=== PATIENT | female | born 1935 | race Caucasian/White ===

== ENCOUNTER 2018-12-28 21:48 | Emergency (ER) | payer OTHER ==
--- NOTE | 2018-12-28 21:58 | PDOC ---
History of Present Illness <Keya Singh - Last Filed: 12/28/18 23:51> - General History Source: Patient Exam Limitations: No Limitations - History of Present Illness Initial Comments: 12/28/18 22:13 83 year old Malaysian speaking female with a significant past medical history of thyroid disease, migraines, hypercholestrolemia, HIV, cataracts surgery, early dementia, chronic dizziness, who presents with L eye subconjunctival bleeding and eye pain with lateral extraocular movements that occurred approximately 1 hour ago while sitting on the couch. The patient does not take any anticoagulants. Denies any headache, nausea, vomiting, loss of consciousness, neck pain, chest pain, shortness of breath, abdominal pain, she has no other complaints at bedside. Family reports she had some dizziness and seeing stars one day ago but patient denies any visual changes at bedside, including spots, blurriness or dimming of vision. <Venecia Jurado - Last Filed: 12/29/18 00:07> - General Chief Complaint: Eye Problem Stated Complaint: EYE PROBLEM Time Seen by Provider: 12/28/18 21:58 Past History <Keya Singh - Last Filed: 12/28/18 23:51> - Past Medical History HTN: Yes Hypercholesterolemia: Yes Thyroid Disease: Yes - Immunization History Immunization Up to Date: Yes - Suicide/Smoking/Psychosocial Hx Smoking History: Current every day smoker Have you smoked in the past 12 months: Yes Number of Cigarettes Smoked Daily: 5 Hx Alcohol Use: No Drug/Substance Use Hx: No Substance Use Type: None <Venecia Jurado - Last Filed: 12/29/18 00:07> - Past Medical History Allergies/Adverse Reactions: Allergies Allergy/AdvReac Type Severity Reaction Status Date / Time No Known Allergies Allergy Verified 03/02/16 09:29 Home Medications: Ambulatory Orders Diltiazem HCl [Cardizem Cd] 120 mg PO DAILY 11/19/13 Enalapril Maleate [Vasotec -] 20 mg PO DAILY 11/19/13 Levothyroxine [Synthroid -] 125 mcg PO DAILY 11/19/13 Simvastatin [Zocor] 20 mg PO HS 11/19/13 Amoxicillin - [Amoxicillin 500mg Capsule -] 500 mg PO DAILY #42 capsule Tramadol HCl [Ultram] 50 mg PO QID #40 tablet MDD 4 06/02/16 Review of Systems - Review of Systems Able to Perform ROS?: Yes Is the patient limited Mongolian proficient: No Constitutional: No: Chills, Diaphoresis, Fever HEENTM: Yes: See HPI (eye discomfort), Cataracts (history of cataracts). No: Blurred Vision, Tearing, Double Vision, Ocular Prothesis, Ear Discharge, Nose Pain, Nose Congestion, Tinnitus, Nose Bleeding, Hearing Loss, Throat Pain, Throat Swelling, Mouth Pain, Dental Problems, Difficulty Swallowing, Mouth Swelling Respiratory: No: Cough, Orthopnea, Shortness of Breath, SOB with Exertion Cardiac (ROS): No: Chest Pain, Lightheadedness, Palpitations, Syncope ABD/GI: No: Constipated, Diarrhea, Nausea, Vomiting : No: Burning, Dysuria, Hematuria, Incontinence Musculoskeletal: No: Back Pain, Muscle Weakness, Neck Pain Integumentary: No: Bruising Neurological: No: Headache, Numbness, Tingling <Venecia Jurado - Last Filed: 12/29/18 00:07> *Physical Exam - Vital Signs Last Vital Signs Temp Pulse Resp BP Pulse Ox 97.2 F L 86 20 139/71 100 12/28/18 21:53 12/28/18 21:53 12/28/18 21:53 12/28/18 21:53 12/28/18 21:53 <Keya Singh - Last Filed: 12/28/18 23:51> - Physical Exam Comments: 12/28/18 22:32 GENERAL: Awake, alert, and fully oriented, in no acute distress HEAD: No signs of trauma, normocephalic, atraumatic EYES: Snellen's 20/25 in both eyes, slight photophobia, discomfort with EOMI, + limited constriction to bright light in L and R eye ENT: oropharynx clear without exudates. Moist mucosa NECK: Normal ROM, supple LUNGS: No distress, speaks full sentences, clear to auscultation bilaterally HEART: Regular rate and rhythm, normal S1 and S2, no murmurs, rubs or gallops, peripheral pulses normal and equal bilaterally. ABDOMEN: Soft, nontender, normoactive bowel sounds. No guarding, no rebound. No masses EXTREMITIES : Normal inspection, Normal range of motion, no edema. No clubbing or cyanosis. NEUROLOGICAL: Cranial nerves II through XII grossly intact. Normal speech, no focal sensorimotor deficits SKIN: Warm, Dry, normal turgor, no rashes or lesions noted <Venecia Jurado - Last Filed: 12/29/18 00:07> ED Treatment Course - LABORATORY CBC & Chemistry Diagram: 12/28/18 23:18 12/28/18 23:18 - ADDITIONAL ORDERS Additional order review: Laboratory Results 12/28/18 12/28/18 23:18 23:18 PT with INR 13.20 H INR 1.12 H PTT (Actin FS) 37.7 H Sodium 140 Potassium 4.2 Chloride 106 Carbon Dioxide 28 Anion Gap 6 L BUN 14 Creatinine 0.7 Creat Clearance w eGFR 80.11 Random Glucose 109 H Calcium 8.9 Total Bilirubin 0.2 AST 40 H ALT 44 Alkaline Phosphatase 123 H Total Protein 7.2 Albumin 3.3 L 12/28/18 23:18 RBC 4.61 MCV 92.5 MCHC 32.8 RDW 14.7 MPV 9.7 Neutrophils % 53.6 D Lymphocytes % 33.3 D Monocytes % 8.7 Eosinophils % 4.0 Basophils % 0.4 - Medications Given in the ED: ED Medications Discontinued Medications Generic Name Dose Route Start Last Admin Trade Name Freq PRN Reason Stop Dose Admin Acetaminophen 650 mg 12/28/18 22:17 12/28/18 22:23 Tylenol - PO 12/28/18 22:18 650 mg ONCE ONE Administration <Keya Singh - Last Filed: 12/28/18 23:51> - LABORATORY CBC & Chemistry Diagram: 12/28/18 23:18 12/28/18 23:18 <Venecia Jurado - Last Filed: 12/29/18 00:07> Medical Decision Making - Medical Decision Making 12/28/18 22:22 83 year old Malaysian speaking female with a significant past medical history of thyroid disease, migraines, hypercholestrolemia, HIV, cataracts surgery, early dementia, chronic dizziness, who presents with R eye subconjunctival bleeding and eye pain with lateral extraocular movements that occurred approximately 1 hour ago while sitting on the couch. The patient does not take any anticoagulants. ED Course: consider subconjunctival hemorrhage vs trauma r/o retrobulbar mass vs globe rupture less likely acute angle glaucoma as patient without visual changes and acute pain cbc, cmp, coags, head CT Head CT: unremarkable labwork wnl Patient stable for discharge. Informed of all lab and imaging results. Given follow up instructions and strict return precautions. Patient expressed understanding and agree to plan. <Venecia Jurado - Last Filed: 12/29/18 00:07> *DC/Admit/Observation/Transfer <Keya Singh - Last Filed: 12/28/18 23:51> - Discharge Dispostion Decision to Admit order: No <Venecia Jurado - Last Filed: 12/29/18 00:07> Diagnosis at time of Disposition: Subconjunctival hemorrhage of left eye - Discharge Dispostion Disposition: HOME Condition at time of disposition: Stable - Patient Instructions Printed Discharge Instructions: DI for Subconjunctival Hemorrhage Additional Instructions: You were seen in the ED for complaints of L eye pain and redness. In the ED you were evaluated with labwork and imaging. Your results were unremarkable. There does not appear to be an acute need for immediate hospitalization. You are advised to follow up with your Primary Care Physician within 1 week. Subconjunctival hemorrhage should resolve on its own. It may take several days to week. You have a referral to an legal referee and are advised to follow up with symptoms do not resolve within 1-2 weeks. If there is eye pain or irritation use over the counter artificial tears. Return to the ED immediately if you experience and changes in vision, pain behind the eye, eye discharge or bleeding, nausea, vomiting, headache, loss of consciousness, chest pain or shortness of breath. Usted fue visto en el servicio de urgencias por quejas de dolor en los ojos y enrojecimiento. En el servicio de urgencias se le evalu con trabajo de laboratorio e imgenes. Odilia resultados no fueron notables. No parece luke herminia necesidad aguda de hospitalizacin inmediata. Se recomienda realizar un seguimiento con lin mdico de atencin primaria dentro de 1 semana. La hemorragia subconjuntival debe resolverse por s marina. Puede olinda varios jeong a la semana. Usted tiene herminia derivacin a un oftalmlogo y se le recomienda que realice un seguimiento de los sntomas que no se resuelven en 1 o 2 semanas. Si hay dolor en los ojos o irritacin, use sobre el contador lgrimas artificiales. Regrese a la memo de urgencias inmediatamente si experimenta y cambia la visin , dolor detrs de los ojos, secrecin ocular o sangrado, nuseas, vmitos, dolor de sofia, prdida de conciencia, dolor de pecho o falta de aire. Print Language: GUINEAN
[2018-12-28 22:01] VITALS: BP 139/71; PULSE 86; TEMP 97.2; BMI 24.7
[2018-12-28] MEDS ORDERED: ACETAMINOPHEN 325 MG TABLET (FP) PO ONE (22:17)
[2018-12-28] MEDS ORDERED: ACETAMINOPHEN 325 MG TABLET (FP) ONE (22:21)
[2018-12-28 23:27] LABS: BASO % 0.4 % (0-2.0); HEMATOCRIT 42.7 % (32.4-45.2); LYMPH % 33.3 % (8-40); MCH 30.4 pg (25.7-33.7); MCHC 32.8 g/dl (32.0-36.0); MEAN CELL VOLUME 92.5 fl (80-96); MEAN PLT VOLUME 9.7 fl (7.5-11.1); MONO % 8.7 % (3.8-10.2); NEUT % 53.6 % (42.8-82.8); PLATELET COUNT 245 K/MM3 (134-434); RBC 4.61 M/mm3 (3.60-5.2); RDW 14.7 % (11.6-15.6); WHITE BLOOD COUNT 7.7 K/mm3 (4.0-10.0)
[2018-12-28 23:47] LABS: INR 1.12 (0.83-1.09); PROTHROMBIN TIME (PATIENT) 13.2 SEC (9.7-13.0)
[2018-12-28 23:49] LABS: ACTIVATED PTT 37.7 SECONDS (25.2-36.5)
[2018-12-28 23:51] LABS: ALBUMIN 3.3 g/dl (3.4-5.0); ALK PHOS 123 U/L (45-117); ANION GAP 6 MMOL/L (8-16); BILIRUBIN,TOTAL 0.2 mg/dL (0.2-1); BLOOD UREA NITROGEN 14 mg/dL (7-18); CALCIUM 8.9 mg/dL (8.5-10.1); CHLORIDE 106 mmol/L (98-107); CO2 28 mmol/L (21-32); CREATININE 0.7 mg/dL (0.55-1.3); GLUCOSE,RANDOM 109 mg/dL (74-106); POTASSIUM 4.2 mmol/L (3.5-5.1); SGOT/AST 40 U/L (15-37); SGPT/ALT 44 U/L (13-61); SODIUM 140 mmol/L (136-145); TOT PROT 7.2 g/dl (6.4-8.2)
--- NOTE | 2018-12-28 23:52 | PDOC ---
Attending Attestation - HPI HPI: 12/29/18 00:09 The patient is an 83-year-old female with a past medical history significant for HLD, thyroid disease, HIV, Cataracts surgery, chronic dizziness, and early dementia presents to the emergency department with left eye redness. 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 Denies headache, LOC, bulging of the eyes , blurriness, spots in the eyes, diplopia. - Medical Decision Making 12/29/18 00:09 Documentation prepared by Rosana Pacheco, acting as medical imaging tech for Keya Singh MD. <Rosana Pacheco - Last Filed: 12/29/18 00:09> - Resident Resident Name: Venecia Jurado - ED Attending Attestation I have performed the following: I have examined & evaluated the patient, The case was reviewed & discussed with the resident, I agree w/resident's findings & plan - Physicial Exam PE: 12/29/18 01:00 Agree with resident exam. Pt has irreg pupil on the left secondary to cataract repair, as well as RACH in left sclera. Vision intact and excellent bilat. Pt has no other complaints. Rest of exam normal. Neuro intact. software reliability engineer intact only pupils are not reactive to light. - Medical Decision Making 12/28/18 23:52 Patient Name: NAFISA COLLINS THIS IS A PRELIMINARY REPORT FROM [facility] DATE OF SERVICE: 2018-12-28 22:40:09 IMAGES: 133 EXAM: HEAD CT WITHOUT CONTRAST HISTORY: Concern for retrobulbar pathology COMPARISON: None. FINDINGS: Brain parenchyma is normal in attenuation with no mass or hematoma. There is no midline shift. Barahona and white matter differentiation is normal. Ventricles are normal. Sulci and extra-axial CSF spaces are normal. Intracranial vascular structures are normal in attenuation. There is no calvarial fracture. There is small amount of fluid in the left frontal and anterior ethmoid sinus. There are surgical changes in the medial bailey of the maxillary sinuses. IMPRESSION: Mild sinusitis 12/29/18 01:02 Pt stable for discharge. She has RACH nothing more at this point. <Keya Singh - Last Filed: 12/29/18 01:03>
== END 2018-12-29 00:03 | disposition home or self-care (01) ==
LOC: JER 21:48
DX: H11.32 Conjunctival hemorrhage, left eye (principal); I10 Essential (primary) hypertension; E78.00 Pure hypercholesterolemia, unspecified; F03.90 Unspecified dementia, unspecified severity, without behavioral disturbance, psychotic disturbance, mood disturbance, and anxiety; E07.9 Disorder of thyroid, unspecified; Z21 Asymptomatic human immunodeficiency virus [HIV] infection status
CPT/HCPCS: 36415; 70450-TC; 80053; 85025; 85610; 85730; 99282-25